=== PATIENT | male | born 1940 | race Caucasian/White ===

== ENCOUNTER → 2022-11-25 | Day surgery (SDC) | payer MEDICARE, OTHER ==
[~2022-11-25] VITALS: Ht 177.8 cm; Wt 89.4 kg
[~2022-11-25] MED LIST: ATOR80TA59 PO; BSS IRRIG/VANCO(10MG)/TOBRA(5MG)/EPINEPH(1:1000-0.5CC)500ML BAG-ORONLY IR ONE; CEFUROXIME 1MG/0.1ML INTRACAMERAL INJ As Ordered ONE; CYCLOPENTOLATE 1% OPHTH SOLN 2ML BTL OS SCH; HYDR-3490 PO; LEVO125T4 PO; LIDOCAINE 1% SDV 5ML VIAL As Ordered ONE; LIDOCAINE 3.5 % 1ML OPHTH TOPICAL GEL OU ONE; LISI10TA22 PO; OFLOXACIN 0.3 % (OCUFLOX) OPTH SOL 5ML OS ONE; PHENYLEPHRINE 10% OPHTH SOL 5ML OS PRN; PHENYLEPHRINE 2.5% OPHTH SOL 2ML OS SCH; TROPICAMIDE 1% OPHTH SOLN 15ML OS SCH
[2022-11-25 07:00] VITALS: BP 146/67; TEMP 97.2; O2SAT 95
== END | disposition home or self-care (01) ==
LOC: M SDC 06:51
PROVIDERS: ATTEND Ophthalmology
DX: H26.9 Unspecified cataract (principal); Z53.09 Procedure and treatment not carried out because of other contraindication; R05.9 Cough, unspecified

== ENCOUNTER 2023-01-20 10:48 | Day surgery (SDC) | payer MEDICARE, OTHER ==
[~2023-01-20] VITALS: Ht 177.8 cm; Wt 86.5 kg
[~2023-01-20 10:48] MED LIST changes: +ACETYLCHOLINE OPHTH SOLN 1% 2ML (MIOCHOL-E) As Ordered ONE; +ASPI81CH33 PO; +CYCLOPENTOLATE 1% OPHTH SOLN 2ML BTL OD SCH; -CYCLOPENTOLATE 1% OPHTH SOLN 2ML BTL OS SCH; +OFLOXACIN 0.3 % (OCUFLOX) OPTH SOL 5ML OD ONE; -OFLOXACIN 0.3 % (OCUFLOX) OPTH SOL 5ML OS ONE; +PHENYLEPHRINE 10% OPHTH SOL 5ML OD PRN; -PHENYLEPHRINE 10% OPHTH SOL 5ML OS PRN; +PHENYLEPHRINE 2.5% OPHTH SOL 2ML OD SCH; -PHENYLEPHRINE 2.5% OPHTH SOL 2ML OS SCH; +TROPICAMIDE 1% OPHTH SOLN 15ML OD SCH; -TROPICAMIDE 1% OPHTH SOLN 15ML OS SCH
[2023-01-20] MEDS ORDERED: fentaNYL 100 MCG/2 ML INJECTION As Ordered ONE (13:37)
[2023-01-20] MEDS ORDERED: MIDAZOLAM INJ 2MG/2ML VIAL As Ordered ONE (13:37)
[2023-01-20] MEDS ORDERED: hydrALAZINE 20MG/ML 1ML VIAL As Ordered ONE (14:33)
[2023-01-20] MEDS ORDERED: PROVISC 10 MG/ML 0.85ML SYRINGE As Ordered ONE (14:38)
[2023-01-20 14:58] VITALS: BP 140/64; TEMP 97.4; O2SAT 97
== END 2023-01-20 15:12 | disposition home or self-care (01) ==
LOC: M SDC 10:48
PROVIDERS: ATTEND Ophthalmology
DX: H26.9 Unspecified cataract (principal); H57.03 Miosis; I10 Essential (primary) hypertension; E03.9 Hypothyroidism, unspecified; E78.00 Pure hypercholesterolemia, unspecified; Z79.890 Hormone replacement therapy; Z79.899 Other long term (current) drug therapy
CPT/HCPCS: 66982; 92015; J0360; J0697; J2250; J3010; V2788

== ENCOUNTER → 2025-01-19 | Outpatient (CLI) | payer MEDICARE, OTHER ==
[~2025-01-19] MED LIST changes: -ACETYLCHOLINE OPHTH SOLN 1% 2ML (MIOCHOL-E) As Ordered ONE; -BSS IRRIG/VANCO(10MG)/TOBRA(5MG)/EPINEPH(1:1000-0.5CC)500ML BAG-ORONLY IR ONE; -CEFUROXIME 1MG/0.1ML INTRACAMERAL INJ As Ordered ONE; -CYCLOPENTOLATE 1% OPHTH SOLN 2ML BTL OD SCH; -LIDOCAINE 1% SDV 5ML VIAL As Ordered ONE; -LIDOCAINE 3.5 % 1ML OPHTH TOPICAL GEL OU ONE; -OFLOXACIN 0.3 % (OCUFLOX) OPTH SOL 5ML OD ONE; -PHENYLEPHRINE 10% OPHTH SOL 5ML OD PRN; -PHENYLEPHRINE 2.5% OPHTH SOL 2ML OD SCH; -TROPICAMIDE 1% OPHTH SOLN 15ML OD SCH
== END ==
LOC: M EKG 11:38
PROVIDERS: ATTEND Physician Assistant
DX: I44.0 Atrioventricular block, first degree (principal)